=== PATIENT | female | born 1995 | race Two or more races ===

== ENCOUNTER 2019-04-07 21:13 | Emergency (ER) | payer BC ==
[~2019-04-07] VITALS: Ht 172.7 cm; Wt 68.0 kg
[2019-04-07 21:18] VITALS: BP 143/97
== END 2019-04-07 22:34 | disposition home or self-care (01) ==
LOC: ER 21:20
DX: R07.89 Other chest pain (principal); F41.9 Anxiety disorder, unspecified; F43.9 Reaction to severe stress, unspecified; F17.200 Nicotine dependence, unspecified, uncomplicated; E03.9 Hypothyroidism, unspecified